=== PATIENT | female | born 1965 | race Hispanic/Latino ===

== ENCOUNTER 2018-08-06 07:30 | Day surgery (SDC) | payer OTHER ==
[2018-08-05 15:29] LABS: BASOPHILS % (AUTO) 0.8 % (0.0-5.0); EOSINOPHILS % (AUTO) 1.3 % (0.0-8.0); HEMATOCRIT 40.9 % (36-48); LYMPHOCYTES % (AUTO) 38.5 % (21.0-51.0); MEAN CORPUSCULAR HEMOGLOBIN 31.5 pg (27.0-33.0); MEAN CORPUSCULAR HGB CONC 34.2 g/dL (32.0-36.0); MONOCYTES % (AUTO) 5.6 % (3.0-13.0); NEUTROPHILS % (AUTO) 53.8 % (40.0-77.0); PLATELET COUNT (AUTO) 308 K/uL (130-400); RED BLOOD CELL COUNT(AUTO) 4.45 MIL/uL (4.00-5.50); RED CELL DISTRIBUTION WIDTH 13.3 % (11.0-15.5); WHITE BLOOD COUNT (AUTO) 8.8 K/uL (4.8-10.8)
[2018-08-05 15:41] LABS: CREATININE 0.8 mg/dL (0.5-1.5); POTASSIUM 3.9 mmol/L (3.5-5.1)
[2018-08-05 15:47] VITALS: BP 147/77
[~2018-08-06] VITALS: Ht 167.6 cm; Wt 103.4 kg
[2018-08-06] VITALS (16 sets, daily range): BP systolic 125–166; BP diastolic 70–86
[~2018-08-06 07:30] MED LIST: ALBUTERAL IH; CEFAZOLIN 3GM /D5W 100ML 100 ML IV SCH; ESCI20TA PO; LANS30TA4 PO; MONT10TA21 PO
[2018-08-06] MEDS ORDERED: LACTATED RINGERS 1000ML 1,000 ML IV ONE (08:01)
[2018-08-06] MEDS ORDERED: LIDOCAINE PF 2% 5ML ABBOJECT ONE ×2 (08:25→10:32)
[2018-08-06] MEDS ORDERED: SUCCINYLCHOLINE 200MG/10ML SYR ONE (08:25)
[2018-08-06] MEDS ORDERED: ONDANSETRON HCL 4 MG/2 ML VIAL ONE (08:25)
[2018-08-06] MEDS ORDERED: CEFAZOLIN SODIUM 1 GM VIAL ONE (08:26)
[2018-08-06] MEDS ORDERED: DEXAMETHASONE SOD PHOSPHATE 10MG/ML 1ML VIAL ONE (08:26)
[2018-08-06] MEDS ORDERED: PROPOFOL 10 MG/ML 20ML VIAL IV ONE ×2 (08:26→08:28)
[2018-08-06] MEDS ORDERED: NEOSTIGMINE 5MG/5ML SYR IV ONE (08:26)
[2018-08-06] MEDS ORDERED: GLYCOPYRROLATE 1 MG/5 ML SYRINGE ONE (08:26)
[2018-08-06] MEDS ORDERED: ROCURONIUM 10MG/1ML SYR 10 MG/ML ML ONE (08:26)
[2018-08-06] MEDS ORDERED: MIDAZOLAM HCL 1 MG/ML 2ML VIAL ONE (08:26)
[2018-08-06] MEDS ORDERED: FENTANYL CITRATE PF 50 MCG/1 ML 2ML VIAL ONE ×2 (08:27→10:40)
[2018-08-06] MEDS ORDERED: METOCLOPRAMIDE 10 MG/2 ML VIAL ONE ×2 (08:27→10:32)
[2018-08-06] MEDS ORDERED: LIDOCAINE HCL 4% LTA SOL 4 ML VIAL ONE (08:29)
[2018-08-06] MEDS ORDERED: MEPERIDINE-PF 25 MG/ML SYG ONE ×2 (11:33→11:51)
[2018-08-06] MEDS ORDERED: CEPH500B PO (11:34)
[2018-08-06] MEDS ORDERED: TYL3 PO (11:34)
== END 2018-08-06 13:33 | disposition home or self-care (01) ==
LOC: DAH 07:30
PROVIDERS: ATTEND Orthopaedic Surgery
DX: M23.222 Derangement of posterior horn of medial meniscus due to old tear or injury, left knee (principal); Z88.8 Allergy status to other drugs, medicaments and biological substances; Z79.899 Other long term (current) drug therapy; Z98.49 Cataract extraction status, unspecified eye; Z83.3 Family history of diabetes mellitus; Z68.36 Body mass index [BMI] 36.0-36.9, adult; K21.9 Gastro-esophageal reflux disease without esophagitis; M94.262 Chondromalacia, left knee
CPT/HCPCS: 29881; 36415; 80048; 85025; A4218; A4606; A4649 ×2; A4930; A6223; J0330; J0690; J1100; J2001 ×2; J2175 ×2; J2250; J2405; J2704 ×2; J2710; J2765 ×2; J3010 ×2; J3490; J7120 ×2

== ENCOUNTER 2024-02-25 18:27 | Emergency (ER) | payer BC, OTHER ==
[~2024-02-25] VITALS: Ht 167.6 cm; Wt 101.6 kg
[~2024-02-25 18:27] MED LIST changes: -CEFAZOLIN 3GM /D5W 100ML 100 ML IV SCH; +CEPH500B PO; +MONT-47 PO; -MONT10TA21 PO; +TYL3 PO
[2024-02-25] MEDS: MORPHINE 4 MG SYG IVP ONE (19:30)
[2024-02-25] MEDS: PANTOPRAZOLE 40 MG/VIAL IVP ONE (19:30)
[2024-02-25] MEDS: ONDANSETRON 4MG INJ IVP ONE (19:30)
[2024-02-25] MEDS: 0.9%NACL 1000ML 1,000 ML IV ONE (19:30)
[2024-02-25 20:08] LABS: BASOPHILS # (AUTO) 0.04 K/uL (0.00-0.20); BASOPHILS % (AUTO) 0.5 % (0.0-5.0); EOSINOPHILS # (AUTO) 0.07 K/uL (0.00-0.70); EOSINOPHILS % (AUTO) 0.9 % (0.0-8.0); HEMATOCRIT 41.8 % (36-48); IMMATURE GRANULOCYTE ABSOLUTE 0.02 K/uL (0-1); LYMPHOCYTES # (AUTO) 2.8 K/uL (1.0-4.8); MEAN CORPUSCULAR HEMOGLOBIN 30.4 pg (27.0-33.0); MEAN CORPUSCULAR HGB CONC 34.7 g/dL (32.0-36.0); MEAN CORPUSCULAR VOLUME 87.6 fL (79-99); MONOCYTES # (AUTO) 0.4 K/uL (0.1-1.0); MONOCYTES % (AUTO) 4.7 % (3.0-13.0); NEUTROPHILS # (AUTO) 4.9 K/uL (1.8-7.7); NEUTROPHILS % (AUTO) 59.7 % (40.0-77.0); PLATELET COUNT (AUTO) 304 K/uL (130-400); RED BLOOD CELL COUNT(AUTO) 4.77 MIL/uL (4.00-5.50); RED CELL DISTRIBUTION WIDTH 12.1 % (11.0-15.5); WHITE BLOOD COUNT (AUTO) 8.1 K/uL (4.8-10.8)
[2024-02-25 20:20] LABS: CREATININE 0.9 mg/dL (0.5-1.0)
[2024-02-25 20:24] LABS: ALBUMIN 3.9 g/dL (3.5-5.0); BILIRUBIN,TOTAL 0.4 mg/dL (0.2-1.0); TOTAL PROTEIN, SERUM 8.1 g/dL (6.0-8.3)
[2024-02-25] MEDS ORDERED: PANT20TA18 PO (23:47)
[2024-02-26] MEDS: PANTOPRAZOLE 40 MG TAB DR PO ONE (01:29)
[2024-02-26 01:51] LABS: APPEARANCE,URINE CLOUDY (CLEAR); BILIRUBIN,URINE NEGATIVE (NEGATIVE); COLOR,URINE YELLOW (YELLOW); GLUCOSE, URINE (UA) NEGATIVE (NEGATIVE); KETONES,URINE 5 mg/dL (NEGATIVE); LEUKOCYTE ESTERASE ,URINE 25 Leu/uL (NEGATIVE); NITRATE,URINE NEGATIVE (NEGATIVE); PROTEIN,URINE 20 mg/dL (NEGATIVE); UROBILINOGEN,URINE 0.2 mg/dL (0.2-1.0)
[2024-02-26 01:52] LABS: ADD UA MICROSCOPIC YES
[2024-02-26 01:54] LABS: BACTERIA,URINE RARE /HPF (None Seen); MUCUS,URINE FEW LPF (None Seen); SQUAMOUS EPITHELIAL CELL,UR FEW /HPF (0-2); URIC ACID CRYSTALS,URINE RARE /LPF (None Seen)
[2024-02-26 02:02] VITALS: BP 146/83; PULSE 73; RESP 16; O2SAT 98
== END 2024-02-26 02:05 | disposition home or self-care (01) ==
LOC: EDH 18:27
DX: K29.70 Gastritis, unspecified, without bleeding (principal); F41.9 Anxiety disorder, unspecified; F32.A Depression, unspecified; Z88.4 Allergy status to anesthetic agent; Z88.2 Allergy status to sulfonamides; Z88.8 Allergy status to other drugs, medicaments and biological substances; Z79.899 Other long term (current) drug therapy; Z90.49 Acquired absence of other specified parts of digestive tract; Z90.710 Acquired absence of both cervix and uterus
CPT/HCPCS: 36415; 71045; 74176; 76705; 80053; 81001; 82550; 83690; 84484; 85025; 93005